=== PATIENT | male | born 1940 | race Caucasian/White ===

== ENCOUNTER 2016-12-19 11:55 | Observation (INO) | payer MEDICARE, OTHER ==
[~2016-12-19] VITALS: Ht 170.2 cm; Wt 71.5 kg
[~2016-12-19 11:55] MED LIST: ADVAIR HFA 115/1 INH INH; ALBUTEROL0.63 MG/3 INH; ATORVASTATIN CA80 MG PO; ATROVENT INH S2.5 ML INH; AUGMENTIN 875-1 EACH PO; BUDESONIDE0.5 MG/2 M INH; CEFTIN500 MG PO; CETIRIZINE HCL10 MG PO; CORDARONE 200M200 MG PO; DALIRESP 500500 MCG PO; DALIRESP500 MCG PO; FERROUS SULFAT325 MG PO; FUROSEMIDE40 MG PO; IPRAT-ALBUT 0.5-3 ML INH; K-DUR TAB 20 M20 MEQ PO; LASIX40 MG PO; LEVOTHYROXINE75 MCG PO; LIPITOR80 MG PO; LISINOPRIL2.5 MG PO; MEDROL DOSEPAK 24 MG PO; PLAVIX 75 MG TA75 MG PO; PROAIR HFA8.5 GM INH; PROVENTIL HFA 61 INH INH; SPIRIVA18 MCG INH; SPIRONOLACTONE25 MG PO; SYNTHROID75 MCG PO; TOPROL XL50 MG PO; TYLENOL 325MG325 MG PO; VENTOLIN/PROVE0.5 ML INH; XARELTO20 MG PO; ZYRTEC10 MG PO
[2016-12-19 13:04] LABS: HEMOGLOBIN 12.4 gm/dl (14.0-17.5); RED BLOOD COUNT 5.83 M/UL (4.20-5.50); WHITE BLOOD COUNT 7.5 K/UL (4.5-11.0)
[2016-12-19 13:12] LABS: BUN/CREATININE RATIO 14 (0-10)
[2016-12-20] MEDS ORDERED: CORDARONE 200M200 MG PO (00:01)
[2016-12-20] MEDS ORDERED: BUDESONIDE0.5 MG/2 M INH (00:02)
[2016-12-20] MEDS ORDERED: ASPIRIN CHEWABL81 MG PO (00:02)
[2016-12-20 04:25] LABS: WHITE BLOOD COUNT 6.7 K/UL (4.5-11.0)
[2016-12-20 04:26] LABS: HEMOGLOBIN 10.2 gm/dl (14.0-17.5); RED BLOOD COUNT 4.83 M/UL (4.20-5.50)
[2016-12-20 04:45] LABS: BUN/CREATININE RATIO 17 (0-10)
[2016-12-21 03:42] LABS: HEMOGLOBIN 10.1 gm/dl (14.0-17.5)
[2016-12-21 03:59] LABS: BUN/CREATININE RATIO 15 (0-10)
[2016-12-21 04:56] LABS: RED BLOOD COUNT 4.79 M/UL (4.20-5.50)
[2016-12-22 03:58] LABS: HEMOGLOBIN 9.9 gm/dl (14.0-17.5); RED BLOOD COUNT 4.63 M/UL (4.20-5.50); WHITE BLOOD COUNT 7.1 K/UL (4.5-11.0)
[2016-12-22 04:06] LABS: BUN/CREATININE RATIO 15 (0-10)
[2016-12-22] MEDS ORDERED: LANOXIN TAB0.125 MG PO (13:55)
[2016-12-22] MEDS ORDERED: LEVAQUIN750 MG PO (14:16)
[2016-12-22] MEDS ORDERED: MIDODRINE HCL5 MG PO (14:22)
[2016-12-24 11:00] LABS: WHITE BLOOD COUNT 9.1 K/UL (4.5-11.0)
== END 2016-12-22 15:15 | disposition home or self-care (01) ==
LOC: ER1 11:55 → PROG CARE 16:15 → ZEROF 16:15 → PROG CARE 23:25
PROVIDERS: Emergency Medicine; Internal Medicine; ADMIT Internal Medicine
DX: I95.9 Hypotension, unspecified (principal); E87.2 Acidosis; D50.9 Iron deficiency anemia, unspecified; I48.91 Unspecified atrial fibrillation; I07.1 Rheumatic tricuspid insufficiency; I25.10 Atherosclerotic heart disease of native coronary artery without angina pectoris; I11.0 Hypertensive heart disease with heart failure; I50.32 Chronic diastolic (congestive) heart failure; I50.22 Chronic systolic (congestive) heart failure; J44.9 Chronic obstructive pulmonary disease, unspecified; E78.5 Hyperlipidemia, unspecified; E03.9 Hypothyroidism, unspecified; Z87.891 Personal history of nicotine dependence; Z80.0 Family history of malignant neoplasm of digestive organs; Z82.49 Family history of ischemic heart disease and other diseases of the circulatory system; Z79.01 Long term (current) use of anticoagulants; Z79.899 Other long term (current) drug therapy; Z98.890 Other specified postprocedural states
CPT/HCPCS: 36415; 71010; 80048; 80053; 80162; 81001; 82550; 82553; 83605; 83735; 83874; 83880; 84439; 84443; 84484; 85025; 85027; 86140; 87040; 93005; 94640; 94664; 96361; 96365; 96366; 96374; 96375; 96376; 99285; G0378; J1630; J1956; J7030